=== PATIENT | male | born 1990 ===

== ENCOUNTER 2019-02-09 11:39 | Outpatient (CLI) | payer OTHER ==
--- NOTE | 2019-02-15 12:35 | OP Clinic Progress Note ---
SUBJECTIVE: Trevon Bazzi is a 28-year-old male who presented to the clinic earlier this week for toenail trimming and was found to have a right third toenail medial border ingrown toenail. The patient presented with his caregiver today. The patient is not really verbal and definitely has some pain on palpation at the right third toe that is causing some discomfort. The patient has a history of ingrown toenail in the past which was treated by myself. The patient and the caregiver understand that our goal is to prevent any infection and take care of this so it is no longer a problem for him. There is no reported signs of infection, purulence or drainage of any kind noted at this time. OBJECTIVE: Vitals: Temperature 99.6 degrees Fahrenheit, heart rate 85, respiration rate 16, blood pressure 146/71. O2 saturation is 99% on room air. Vascular: 2+ DP and PT pulses, right foot. Capillary refill time is less than 3 seconds to the toes of the right foot. There is no edema noted, right foot. It should be noted there is a small amount of edema noted on the right medial third toenail area. Dermatologic: Mild swelling and also a small open lesion on the medial aspect of the right third toenail is visible still. There is no erythema, purulence or drainage noted. Musculoskeletal: There is mild pain on palpation noted at the right third toenail medial border. It should be noted on my last visit I accidentally said lateral but it should have been the medial border. The patient also has contracture in the hips, knees and feet and is in a wheelchair. Neurologic: Light touch sensation is intact to the toes, right foot. ASSESSMENT AND PLAN: 1. Onychocryptosis; L60.0. 2. 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 We were able to get Alia Bazzi who is the guardian for this patient on the phone and I was able to discuss the risks and benefits of the procedure that include but are not limited to bleeding and infection, and she gave verbal consent for a right third toenail medial border partial nail avulsion. This consent was also signed by the caregiver who was in the room as the patient is unable to do that himself. PROCEDURE #1: Right third toe medial border partial nail avulsion (temporary). I do not feel comfortable doing a permanent procedure on this as this is the first time I have done it on this toe as well as the fact that there is risk of getting the phenol on other toes due to the inability of the patient to have his foot straight. I am basically working on his toe with his foot sideways and phenol could drain or fall onto the other toes if we are not careful. An alcohol swab was utilized to cleanse the base of the third toe and 4 mL of a 1:1 mix of 2% lidocaine plain and 0.5% Marcaine plain were injected into the base of the right third toe. The toe was then cleansed with a Betadine prep. At this time the medial border of the right third toenail was avulsed partially with nail splitters. The site was then dressed with triple antibiotic ointment, 4x4 gauze, 2-inch Magy and 1-inch Coban beginning on the toe and ending on the distal forefoot. The patient tolerated the procedure well. Verbal and written instructions were given to the patients caregiver who then relayed them on the phone to the patients other caregiver, Manuel, I believe, regarding leaving the dressings intact, clean and dry until tomorrow when they could be removed and that they can wash the toe with soap and water and apply antibiotic ointment and a Band-Aid daily. We will have the patient return to clinic in 1 week for follow-up and to make sure that this is healing well. We will likely see him again 2 weeks after that to make sure it is completely healed unless it is already looking fantastic in a week from now. They had no further questions or concerns and were grateful for the visit. Tico DamonP.M. (Dictated/Not Signed) Zenia Job#: [id number] MTDD
== END 2019-02-09 11:41 ==
LOC: POD 11:39
PROVIDERS: ATTEND Podiatrist Foot & Ankle Surgery
DX: L60.0 Ingrowing nail (principal); M24.561 Contracture, right knee; M24.562 Contracture, left knee
CPT/HCPCS: 11730; 99212; A4554